=== PATIENT | female | born 1960 | race Caucasian/White ===

== ENCOUNTER 2019-04-23 06:41 | Day surgery (SDC) | payer MEDICARE, MEDICAID, SELFPAY ==
[2019-04-23] VITALS (18 sets, daily range): BP systolic 96–133; BP diastolic 54–83; PULSE 62–91; RESP 15–27; TEMP 35.8–36.9; O2SAT 93–100; BMI 28.1
--- NOTE | 2019-04-23 | DI.RAD.S_ITS ---
PROCEDURE: XR ABDOMEN 1V INDICATIONS: SP PEG tube placement TECHNIQUE: One view of the abdomen acquired. COMPARISON: None. FINDINGS: Surgical changes and devices: PEG tube Bowel: Bowel gas pattern is normal. No contrast is then injected into the PEG tube, so its location cannot be assessed. No free air. Soft tissues: No suspicious abdominal calcifications. Visualized solid organ contours appear normal in size. Bones: No suspicious bony lesions. IMPRESSION: Cannot assess location of PEG tube tip without injection of contrast. Normal bowel gas pattern. No free air noted. Dictated by: Herman Starr M.D. on 04/23/2019 at 10:32 Approved by: Herman Starr M.D. on 04/23/2019 at 10:33
--- NOTE | 2019-04-23 06:50 | PM.PREOP ---
Pre-operative Note Interval Note History & Physical reviewed/Exam performed by Physician: Yes Changes to H&P: No
[2019-04-23] MEDS: LACTATED RINGERS 1,000 ML 42 ML IV (07:28)
[2019-04-23] MEDS: CEFAZOLIN 2 GM/100 ML FROZ.PIGGY IV (07:52)
--- NOTE | 2019-04-23 08:54 | PM.OP.1 ---
Operative Date/Time/Diagnoses Date of procedure: 04/23/19 Time of procedure: 08:54 Pre-op diagnosis: ALS Post-op diagnosis: same Procedure & Clinicians Procedure: Percutaneous endoscopic gastrostomy tube placement Same procedure as scheduled: Yes Indications: Patient is a 59-year-old female with advanced ALS who is no longer able to provide herself with adequate oral nutrition. She presents for elective percutaneous gastrostomy tube Surgeon: Matt Urena Click Yes if Unassisted: No Anesthesia Type: Sedation Operative Notes Estimated Blood Loss (mL): 5 Procedure in detail: Patient was brought to the operating room and positioned in her stretcher. Sedation was provided by anesthesia because of her advanced ALS and concerns for respiratory insufficiency. The endoscope was placed into the mouth and advanced into the esophagus and stomach. The stomach was insufflated and was notable for its small size likely secondary to infrequent use. A point on the anterior abdominal wall was selected over the body of the stomach and an incision was made on the abdominal wall. The abdominal wall was quite thick and the with the small size of the stomach I was unable to pass the finder needle into the stomach here. An alternative location was identified where the needle could be introduced into the stomach under direct visualization. The guide wire was passed via the needle into the stomach and retrieved with the endoscope. The PEG tube was then directed back into the stomach and was 6 cm from the skin. The scope was then reinserted into the stomach and the position of the tube was observed and it was flush with the wall of the stomach and rotated freely. The previous skin incision was closed with 4-0 Monocryl followed by Dermabond. She emerged from anesthesia and was transported to the recovery area in stable condition. A post procedure abdominal XR demonstrates the tube in good position. Complications: none Post-operative Condition: stable Disposition: same day surgery
--- NOTE | 2019-04-23 09:18 | SUR.PHASEI ---
Patient responds to simple yes/no questions. History of ALS, but able to move UE weakly. Denies pain/nausea. Will continue to monitor.
--- NOTE | 2019-04-23 10:03 | SUR.PHASEII ---
Dr. Urena notified X-ray not read at this time. Attempted to reach radiology. Pt stable. Ok to transfer to phase II per Dr. Urena.
[2019-04-23] MEDS: fentaNYL 100 MCG/2 ML INJ 25 MCG IV (10:27)
--- NOTE | 2019-04-23 10:28 | SUR.PHASEI ---
Report received from Anny. Pt moaning when abd touched, abd soft. Peg site and surgical sites cdi.
--- NOTE | 2019-04-23 10:43 | SUR.PHASEI ---
Dr. Urena evaluated patient. Abd soft. Pain improved per pt. O2 sat 96%RA. X-ray report reviewed with MD. VILLALTA for patient to discharge per .
--- NOTE | 2019-04-23 11:01 | SUR.PHASEI ---
Upon arrival, oral care done, lip moisturizer applied.
--- NOTE | 2019-04-23 11:20 | SUR.PHASEI ---
Pt reported 1/10 abd pain, abd soft. Pt transferred to [facility], Report to Anny.
--- NOTE | 2019-04-23 11:32 | SUR.PHASEII ---
Rand from assisted living called and given report. Transport to call me back with a picking crew supervisor time. Abdomen with peg tube c/d/i. Puncture sites with glue c/d/i. VSS, rates pain 08/09.
--- NOTE | 2019-04-23 12:13 | SUR.PHASEII ---
[facility] called again about transportation. Will return call. Pt dressed and ready in wheel chair.
--- NOTE | 2019-04-23 16:34 | SUR.PHASEII ---
late entry: Transporter came for pt, pt left via automated wheelchair and in stable condition.
== END 2019-04-23 12:30 ==
PROVIDERS: PCP Family Medicine; Visit Provider Surgery
PROC: 0DH63UZ Insertion of Feeding Device into Stomach, Percutaneous Approach (ICD-10-PCS; CPT 43246; principal; 2019-04-23 07:45)
DX: G12.21 Amyotrophic lateral sclerosis (principal); R13.10 Dysphagia, unspecified; E46 Unspecified protein-calorie malnutrition; R50.9 Fever, unspecified
CPT/HCPCS: 43246; 36415; 71045; 74018; 80053; 81001; 83605; 83690; 85025; 87880; 99283; J0690; J2704; J3010

== ENCOUNTER 2019-04-23 21:10 | Emergency (ER) | payer MEDICARE, MEDICAID, SELFPAY ==
[2019-04-23 21:15] VITALS: BP 118/74; PULSE 85; RESP 16; TEMP 37.3; O2SAT 96
--- NOTE | 2019-04-23 22:06 | ED.FEVER ---
HPI - Fever General Chief Complaint: Fever Stated Complaint: Fever Time Seen by Provider: 04/23/19 22:06 Source: family and EMS Mode of arrival: EMS Limitations: physical limitation History of Present Illness HPI Narrative: The patient has ALS. She resides at [facility]. She had a PEG tube placed earlier today. After returning back to sleep and 1 rehab, the nurse noted that she has a fever 101?. She arrives now. She has family with her to speak for. She indicates she has no pain. She denies sinus pressure or sore throat. She has no cough or dyspnea. She has no abdominal complaints. She is not prone to urinary tract infections. She has no rashes. The fever was discovered on routine checks. There has been no complaints of illness. Related Data Home Medications Medication Instructions Recorded Confirmed acetaminophen 325 mg tablet 325 mg PO QID PRN 04/03/19 04/17/19 ascorbic acid (vitamin C) 500 mg PO DAILY 04/03/19 04/17/19 cholecalciferol (vitamin D3) 5,000 5,000 unit PO DAILY 04/03/19 04/17/19 unit capsule coenzyme Q10 200 mg capsule 200 mg PO DAILY 04/03/19 04/17/19 docusate sodium 100 mg capsule 100 mg PO DAILY 04/03/19 04/17/19 lidocaine HCl 4 % topical cream 1 applictn TOP QID PRN 04/03/19 04/17/19 omega-3 fatty acids 1,000 mg 1,000 mg PO DAILY 04/03/19 04/17/19 capsule Allergies Allergy/AdvReac Type Severity Reaction Status Date / Time Sulfa (Sulfonamide Allergy Intermediate Verified 04/03/19 11:32 Antibiotics) Review of Systems Review of Systems ROS Unobtainable: All systems reviewed & are unremarkable except as noted in HPI and below Constitutional Constitutional: Denies chills and Denies lethargy Eyes Eyes: Denies change in vision, Denies eye discharge and Denies irritation ENT Ears, Nose, Mouth, and Throat: Denies change in voice, Denies neck pain and Denies sore throat Cardiovascular Cardiovascular: Denies chest pain, Denies irregular heart rhythm, Denies lightheadedness, Denies palpitations, Denies dyspnea and Denies orthopnea Respiratory Respiratory: Denies cough, Denies dyspnea and Denies wheezing Gastrointestinal Gastrointestinal: Denies abdominal pain, Denies change in bowel habits, Denies diarrhea, Denies nausea and Denies vomiting Genitourinary Genitourinary: Denies hematuria, Denies dysuria, Denies flank pain and Denies urinary urgency Musculoskeletal Musculoskeletal: Denies back pain and Denies neck pain Integumentary/Breasts Skin/Breast: Denies pruritus, Denies erythema, Denies rash and Denies wounds Neurologic Comments: Chronically weakness and dysarthria associated with ALS. Endocrine Endocrine: Denies palpitations Allergic/Immunologic Allergic/Immunologic: Denies wheezing [facility] Medical History Acquired lymphedema (Acute) ALS (amyotrophic lateral sclerosis) (Acute) Breast cancer (Acute) Dysphasia (Acute) Malnutrition (Acute) Social History Smoking Status: Never smoker Social History Smoking Status: Never smoker Exam Initial Vital Signs Initial Vital Signs: Vital Signs Temperature 99.2 F 04/23/19 21:15 Pulse Rate 85 04/23/19 21:15 Respiratory Rate 16 04/23/19 21:15 Blood Pressure 118/74 04/23/19 21:15 Pulse Oximetry 96 04/23/19 21:15 Const General: cooperative Orientation: alert, awake and oriented x3 Other: Difficulty with speech due to ALS. She communicates effectively nonetheless. [facility] Head: normocephalic and atraumatic Ears: external ears normal and TM's normal bilaterally Nose: external nose normal and No nasal discharge Face and sinus: sinuses nontender and face symmetric Mouth: oral mucosae normal and moist mucous membranes Throat: posterior oropharynx abnormal Eyes Conjunctivae: conjunctivae normal Neck Neck: no meningeal signs, supple and No lymphadenopathy Chest Chest: normal inspection of the chest Resp Effort & Inspection: normal respiratory effort and able to speak in complete sentences Auscultation: clear to auscultation bilaterally, no rales, no rhonchi and no wheezes Cardio Rate: regular rate Rhythm: regular rhythm Heart Sounds: S1 normal, S2 normal, no click, no gallops, no murmurs and no rubs Pulses: normal peripheral pulses GI Inspection: non-distended Palpation: soft, no hepatosplenomegaly, No guarding, No pulsatile mass and No tender Auscultation: normal bowel sounds Other: Peg tube is noted to be in place. Back/Spine/Pelvis Back: No CVA tenderness and No erythema Skin General: no rashes or lesions noted, No jaundice and No petechiae Neuro General: alert, not confused and other (Generalized weakness) Speech: abnormal speech (See HPI) Extrem Other: Flaccid extremities with minimal motion. Course Course Course Narrative: The patient has demonstrated no ENT complaints, no cough or dyspnea, and no abdominal complaints since arrival. Lab and radiology evaluation is benign. The fever may be drug induced, or viral syndrome. She will be discharged home. Orders Ordered: ED Orders 04/23/19 22:12 XR chest 1V Stat 04/23/19 22:30 Complete Blood Count AUTO DIFF Stat Comprehensive Metabolic Panel Stat Lactate (Lactic Acid) Stat Lipase Stat 04/23/19 23:06 Urinalysis and Microscopic Stat Discontinued Medications Acetaminophen (Tylenol) 650 mg PO NOW ONE Stop: 04/24/19 00:02 Vital Signs Vital signs: Vital Signs - 8 hr 04/23/19 21:15 04/23/19 23:18 Temperature 99.2 F Pulse Rate 85 84 Respiratory Rate 16 15 Blood Pressure 118/74 Blood Pressure [Left Arm] 98/58 L Pulse Oximetry 96 95 MDM - Fever Lab Data Result diagrams: 04/23/19 22:30 04/23/19 22:30 Labs: Lab Results 04/23/19 04/23/19 04/23/19 Range/Units 22:30 22:30 22:30 WBC 10.9 (4.5-11.0) X10^3/uL RBC 3.86 L (4.0-5.2) X10^6/uL Hgb 12.1 (12.0-16.0) g/dL Hct 35.8 L (36-46) % MCV 92.8 (80-100) fL MCH 31.3 (26-34) PG MCHC 33.7 (30-36) % RDW 14.6 (11.6-14.8) % Plt Count 295 (150-400) X10^3/uL Neut % (Auto) 79.2 H (50-75) % Lymph % (Auto) 16.1 L (25-40) % [place] % (Auto) 4.0 (3-14) % Eos % (Auto) 0.3 L (2-4) % Baso % (Auto) 0.4 (0-2) % Neut # (Auto) 8700 H (1642-3805) /uL Lymph # (Auto) 1800 (8871-8465) /uL [place] # (Auto) 400 (0-900) /uL Eos # (Auto) 0 (0-450) /uL Baso # (Auto) 0 (0-100) /uL Sodium 138 (137-145) mmol/L Potassium 3.7 (3.4-5.1) mmol/L Chloride 104 (98-107) mmol/L Carbon Dioxide 26 (22-32) mmol/L BUN 10 (7-17) mg/dL Creatinine 0.40 L (0.52-1.04) mg/dL Estimated GFR > 60.0 (>60) mL/min BUN/Creatinine Ratio 25.0 H (6-22) Glucose 105 (80-110) mg/dL Lactate 0.8 (0.7-2.1) mmol/L Calcium 9.8 (8.4-10.2) mg/dL Total Bilirubin 0.6 (0.2-1.3) mg/dL AST 29 (14-36) IU/L ALT 16 (9-52) IU/L Alkaline Phosphatase 68 (38-126) U/L Total Protein 7.3 (6.3-8.2) g/dL Albumin 3.8 (3.5-5.0) g/dL Globulin 3.5 (1.7-4.1) g/dL Albumin/Globulin Ratio 1.1 (1.0-2.8) Lipase 44 (23-300) U/L Urine Color Urine Appearance Urine pH (4.5-8.0) Ur Specific [place] (1.000-1.035) Urine Protein (Negative) Urine Glucose (UA) (Negative) g/dL Urine Ketones (NEGATIVE) Urine Occult Blood (Negative) Urine Nitrate (Negative) Urine Bilirubin (NEGATIVE) Urine Urobilinogen (0.2) E.U./dL Ur Leukocyte Esterase (NEGATIVE) Urine RBC (0-5/HPF) Urine WBC (0-5/HPF) Ur Squamous Epith Cells (0-5/HPF) Amorphous Sediment Urine Bacteria (None) Ur Culture Indicated? 04/23/19 Range/Units 23:06 WBC (4.5-11.0) X10^3/uL RBC (4.0-5.2) X10^6/uL Hgb (12.0-16.0) g/dL Hct (36-46) % MCV (80-100) fL MCH (26-34) PG MCHC (30-36) % RDW (11.6-14.8) % Plt Count (150-400) X10^3/uL Neut % (Auto) (50-75) % Lymph % (Auto) (25-40) % [place] % (Auto) (3-14) % Eos % (Auto) (2-4) % Baso % (Auto) (0-2) % Neut # (Auto) (5872-0518) /uL Lymph # (Auto) (0451-2430) /uL [place] # (Auto) (0-900) /uL Eos # (Auto) (0-450) /uL Baso # (Auto) (0-100) /uL Sodium (137-145) mmol/L Potassium (3.4-5.1) mmol/L Chloride (98-107) mmol/L Carbon Dioxide (22-32) mmol/L BUN (7-17) mg/dL Creatinine (0.52-1.04) mg/dL Estimated GFR (>60) mL/min BUN/Creatinine Ratio (6-22) Glucose (80-110) mg/dL Lactate (0.7-2.1) mmol/L Calcium (8.4-10.2) mg/dL Total Bilirubin (0.2-1.3) mg/dL AST (14-36) IU/L ALT (9-52) IU/L Alkaline Phosphatase (38-126) U/L Total Protein (6.3-8.2) g/dL Albumin (3.5-5.0) g/dL Globulin (1.7-4.1) g/dL Albumin/Globulin Ratio (1.0-2.8) Lipase (23-300) U/L Urine Color Yellow Urine Appearance Sl cloudy Urine pH 7.5 (4.5-8.0) Ur Specific [place] 1.010 (1.000-1.035) Urine Protein Negative (Negative) Urine Glucose (UA) Negative (Negative) g/dL Urine Ketones Negative (NEGATIVE) Urine Occult Blood Negative (Negative) Urine Nitrate Negative (Negative) Urine Bilirubin Negative (NEGATIVE) Urine Urobilinogen 0.2 (0.2) E.U./dL Ur Leukocyte Esterase Negative (NEGATIVE) Urine RBC None seen (0-5/HPF) Urine WBC None seen (0-5/HPF) Ur Squamous Epith Cells 1-5 /hpf (0-5/HPF) Amorphous Sediment 1+ Urine Bacteria None seen (None) Ur Culture Indicated? Cult not indicated Point of Care Testing Rapid Strep A Negative Imaging Data Chest x-ray: Radiologist's impression: 120 Woo Foley MD Find Patient Imaging - Carolina Mcguire 59 F 1960 ACTIVITY DATE EXAM STATUS AUTHOR 04/23/19 22:12 Signed Call,[address] [address] XRay Report Signed Patient: Carolina McguireMR#: [id number] : 9Acct:[id number] Age/Sex: 59 / FDate of Service: 04/23/19 Loc: ED Accession Number: [id number] Procedure: XR chest 1V Ordering Provider: Woo Foley MD PROCEDURE: XR CHEST 1V INDICATIONS: ALS. Fever. TECHNIQUE: One view of the chest was acquired. Patient is rotated to the right. COMPARISON: None. FINDINGS: Surgical changes and devices: Multiple surgical clips overlying the chest and right axilla. Lungs and pleura: Lungs appear clear. Mild bibasilar hazy opacity most compatible with atelectasis. No pleural effusions or pneumothorax. Mediastinum: Mediastinal contours appear normal. Heart size is normal. Bones and chest wall: No suspicious bony lesions. Overlying soft tissues appear unremarkable. IMPRESSION: No acute cardiopulmonary abnormality. Dictated by: Lewis Garcia M.D. on 04/23/2019 at 22:38 Approved by: Lewis Garcia M.D. on 04/23/2019 at 22:40 Discharge Plan Departure Patient Disposition: Home Clinical Impression: Fever Qualifiers: Fever type: unspecified Qualified Code(s): R50.9 - Fever, unspecified Instructions: DI for Fever (Symptom) -- Adult Activity Restrictions/Additional Instructions: Tylenol 2 tablets every 4 hours as needed for pain or fever. Be sure you receiving plenty of water. Return to the ER for ENT complaints, cough, chest discomfort, or abdominal discomfort. Prescriptions: No Action acetaminophen [Tylenol] 325 mg tablet 325 mg PO QID PRN (Reason: Pain) RF: 0 cholecalciferol (vitamin D3) 5,000 unit capsule 5,000 unit PO DAILY RF: 0 ascorbic acid (vitamin C) crystals 500 mg PO DAILY RF: 0 docusate sodium [Colace] 100 mg capsule 100 mg PO DAILY RF: 0 coenzyme Q10 200 mg capsule 200 mg PO DAILY RF: 0 omega-3 fatty acids 1,000 mg capsule 1,000 mg PO DAILY RF: 0 lidocaine HCl [Aspercreme (lidocaine)] 4 % cream 1 applictn TOP QID PRN (Reason: Pain) RF: 0 Referrals: Janki Andres [Primary Care Provider] -
--- NOTE | 2019-04-23 22:12 | DI.RAD.S_ITS ---
PROCEDURE: XR CHEST 1V INDICATIONS: ALS. Fever. TECHNIQUE: One view of the chest was acquired. Patient is rotated to the right. COMPARISON: None. FINDINGS: Surgical changes and devices: Multiple surgical clips overlying the chest and right axilla. Lungs and pleura: Lungs appear clear. Mild bibasilar hazy opacity most compatible with atelectasis. No pleural effusions or pneumothorax. Mediastinum: Mediastinal contours appear normal. Heart size is normal. Bones and chest wall: No suspicious bony lesions. Overlying soft tissues appear unremarkable. IMPRESSION: No acute cardiopulmonary abnormality. Dictated by: Lewis Garcia M.D. on 04/23/2019 at 22:38 Approved by: Lewis Garcia M.D. on 04/23/2019 at 22:40
[2019-04-23 22:43] LABS: Add Manual Diff / Slide Review NO; Basophils Absolute Auto 0 /uL (0-100); Basophils Percent Auto 0.4 % (0-2); Eosinophils Absolute Auto 0 /uL (0-450); Eosinophils Percent Auto 0.3 % (2-4); Hematocrit 35.8 % (36-46); Hemoglobin 12.1 g/dL (12.0-16.0); Lymphocytes Absolute Auto 1800 /uL (1100-4500); Lymphocytes Percent Auto 16.1 % (25-40); Mean Corpuscular HGB Conc 33.7 % (30-36); Mean Corpuscular Hemoglobin 31.3 PG (26-34); Mean Corpuscular Volume 92.8 fL (80-100); Monocytes Absolute Auto 400 /uL (0-900); Neutrophils Absolute Auto 8700 /uL (1500-7000); Neutrophils Percent Auto 79.2 % (50-75); Platelet Count 295 X10^3/uL (150-400); Red Blood Cell Count 3.86 X10^6/uL (4.0-5.2); Red Cell Distribution Width 14.6 % (11.6-14.8); White Blood Cell Count 10.9 X10^3/uL (4.5-11.0)
[2019-04-23 22:52] LABS: Alanine Aminotransferase 16 IU/L (9-52); Albumin 3.8 g/dL (3.5-5.0); Albumin Globulin Ratio 1.1 (1.0-2.8); Alkaline Phosphatase 68 U/L (38-126); Aspartate Aminotransferase 29 IU/L (14-36); Bilirubin Total 0.6 mg/dL (0.2-1.3); Blood Urea Nitrogen 10 mg/dL (7-17); Calcium 9.8 mg/dL (8.4-10.2); Carbon Dioxide 26 mmol/L (22-32); Chloride 104 mmol/L (98-107); Estimated Glomerular Filt Rate > 60.0 mL/min (>60); Globulin 3.5 g/dL (1.7-4.1); Glucose 105 mg/dL (80-110); HEMOLYSIS 22 (0-50); Lipase 44 U/L (23-300); Potassium 3.7 mmol/L (3.4-5.1); Sodium 138 mmol/L (137-145); Total Protein 7.3 g/dL (6.3-8.2)
[2019-04-23 22:53] LABS: Lactate (Lactic Acid) 0.8 mmol/L (0.7-2.1)
[2019-04-23 23:14] LABS: Bacteria Urine None Seen; RBC Urine None Seen (0-5/HPF); WBC Urine None Seen (0-5/HPF)
[2019-04-23 23:15] LABS: Appearance Urine UA SL CLOUDY; Bilirubin Urine UA NEGATIVE (NEGATIVE); Color Urine UA YELLOW; Glucose Urine UA NEGATIVE (Negative); Ketones Urine UA NEGATIVE (NEGATIVE); Leukocyte Esterase Urine UA NEGATIVE (NEGATIVE); Nitrite Urine UA NEGATIVE (Negative); Occult Blood Urine UA NEGATIVE (Negative); Protein Urine UA NEGATIVE (Negative); Urobilinogen Urine UA 0.2 E.U./dL (0.2)
[2019-04-23 23:16] LABS: pH Urine UA 7.5 (4.5-8.0)
[2019-04-23 23:18] VITALS: BP 98/58; PULSE 84; RESP 15; O2SAT 95
[2019-04-23 23:20] LABS: Amorphous Sediment Urine 1+; Culture Indicated Urine Cult Not Indicated; Squamous Epithelial Cell Urine 1-5 /HPF (0-5/HPF)
[2019-04-24 02:47] VITALS: BP 100/66; PULSE 84; RESP 15; O2SAT 97
== END 2019-04-24 03:26 | disposition home or self-care (01) ==
PROVIDERS: Emergency Provider Emergency Medicine; PCP Family Medicine
DX: R50.9 Fever, unspecified (principal); Z98.890 Other specified postprocedural states
CPT/HCPCS: 36415; 71045; 80053; 81001; 83605; 83690; 85025; 87880

== ENCOUNTER 2019-05-01 14:30 | Outpatient (RCR) | payer MEDICARE, MEDICAID, SELFPAY ==
--- NOTE | 2019-04-16 17:10 | ST.OPIE ---
Visit Care Team Role Provider Type Janki Andres Attending Provider Non-Staff Primary Care Provider Specialty: Medical Address: [address] , [place], [address] Email: Speech-Language Pathology Initial Evaluation LOADING MANAGER Clinical Swallow Evaluation Start: 04/16/19 16:07 Freq: Status: Active Protocol: Document 04/16/19 16:08 JIE (Rec: 04/16/19 17:00 JIE [id number]) Clinical Swallow Evaluation Session Time Visit Start Time 14:30 Visit Stop Time 15:37 Total Visit Minutes 67 Visit Information Visit Number Initial Evaluation Plan of Care Dates 04/16/19 - 07/16/19 Insurance Information Medicare Referral Referring Physician Dr. Andres (PCP). All reports to be sent also to Neurologist Dr Isabella Hough Reason for Referral ALS, Impaired speech articulation Setting Assessment Location Outpatient Care Visit Type Note Type Initial Evaluation Next Note Type Next Note Type Treatment Note Patient Information Identification Type Name,ID Card History This 59-yr-old female resident of [facility] was diagnosed with ALS in Apr 2018. Since then, she has experienced progressive decline of speech intelligibility, swallow function/safety, and physical mobility. She is bound to a sitting power wheelchair and has right upper/lower extremity hemiparesis secondary to ALS. She is able to use left upper/lower extremities unassisted at this time. Communication: The pt primarily communicates verbally and uses a text-to- speech isis (Speak It) on her phone to assist as needed. Although originally right- handed, she is able to sign her name, write limited text, and type on her phone with her left hand. She has recently obtained an eye controlled speech generating device from [employer] and is in the process of being trained in its use by a computer help desk representative. Swallowing: The pt currently consumes a mechanical soft diet texture, thin liquids from straw, and meds in a carrier. She is able to self-feed with left hand. She reports generally feeling safe with this diet and the freedom to request modifications, such as extra gravy/sauce as needed to ease consumption. She is scheduled for PEG tube placement next week (04/23/19) to supplement oral intake and allow for transition to alternative nutrition/hydration when needed. PMHx is significant for breast cancer (2003) and right side mastectomy (2016). Her mother from ALS. 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 As a result, she is familiar with many aspects of ALS progression, including tube feeding as well as aspiration risks and precautions. Subjective Observations The pt arrived on time unattended. She provided case history supplemental to medical records. The pt requested all reports be provided to both Dr. Andres (PCP) and Dr. Hough (Neurologist). A signed Release of Information Form was obtained to provide records to Dr. Hough (see pt chart). Evaluation Liquids Trialed Thin Solids Trialed Puree,Dysphagia Mechanical, Mechanical Soft Administration Type Straw,Self-Feeding Oral Impairment Severely Impaired Oral Strategies Upright at 90 degrees,Lingual Sweep,Controlled Bite/Sip Size, Other Oral Phase Comments Oral Peripheral Exam: Mild- moderate left side weakness evident upon smile. Minimal lingual strength and ROM. Moderate-severe buccal and labial weakness. Pt able to hold minimal amount of air in cheeks and unable to shift it between cheeks. Mildly reduced labial ROM exhibited with smile-pucker sequences. Jaw strength appears WFL with mildly reduced lateral ROM. Soft palate elevates minimally upon phonation when pt cued to increase loudness; otherwise, elevation was not observed. The pt denies nasal trapping or regurgitation. Moderately reduced hyolaryngeal strength and ROM was observed via palpation. The pt has natural dentition, complete with exception of 2 lower molars missing on both left and right sides (4 teeth). Otherwise in good condition. Oral Phase: Initially, the pt exhibited difficulty drawing liquid through straw and holding in oral cavity, resulting in backflow into straw and significant anterior spillage. The pt was able to complete 2 swallows of water with immediate significant cough. The pt commented, The first swallows are hard until I warm up and can get into a rhythm. Then it's ok. This in fact played out and, after having consumed trials of solids, the pt consumed thin liquid via straw in consecutive sips without overt s/sx of aspiration. Oral prep of all solid boluses was performed in mashing motion secondary to lingual weakness and nearly absent a/p propulsion. Pt benefited somewhat from head tilt back to assist a/p transit. Mastication of diced peaches was slow and required occasional finger assistance from pt to position solid pieces from tongue blade to between teeth. She exhibited good oral clearance with exception of one piece of diced fruit, which eventually was cleared with finger sweep to teeth for additional mastication. Pharyngeal Impairment Moderately Impaired Pharyngeal Strategies Sitting Upright (90 deg),Chin Tuck,Small Bites and Sips Pharyngeal Phase Comments As mentioned, the pt exhibited immediate cough with initial swallows of thin liquid; however, she later safely consumed thin liquid via straw in consecutive sips, as well as all solid trials, without overt s/sx of aspiration. Swallows were often audible and effortful, indicating reduced strength/coordination of musculature, increasing the pt's risk of aspiration. Findings Dysphagia Type Severe Oral and Moderate Pharyngeal Dysphagia Rehabilitation Potential Poor Impressions The pt presents with severe oral and moderate pharyngeal dysphagia secondary to ALS. She is at moderate risk of aspiration. Oral consumption is slow and effortful, increasing the pt's risk of malnutrition. She is independently employing strategies such as chin tuck with consumption of liquids, finger sweep to aid mastication and oral clearance, incorporation of lemon juice in water to increase salivary output and trigger swallow, and addition of moisture to foods to ease consumption. She self-feeds, and self-manages anterior oral spillage with napkins. Recommend the pt continue current diet of mechanical soft texture with added moisture, thin liquids via straw and chin tuck, and meds as tolerated in carrier for now. Ongoing assessment to continue via outpatient therapy with modifications to diet as indicated for safety. Transition from outpatient therapy to [facility] Speech Pathology services may be recommended for closer assessment and care following short course of outpatient services. Diet Recommendations Liquids Order Thin Diet Order Mechanical Soft Medication Recommendations Whole in Carrier,Crushed in Carrier,One at a Time Comments Added moisture to solids Additional Dietary Needs Chopped Food Aspiration Precautions Recommended Precautions Upright at 90 Degrees,Frequent Rest Periods,Small Bites/Sips ,Chin Tuck,Lingual Sweep Treatment Plan Placement Recommendations after [employer] Care Facility Discharge Appropriate for Therapy Yes Therapy Recommendations Ongoing assessment, pt/family education, training of compensatory swallow and communication strategies. Dysphagia Goals 1. The pt will employ compensatory swallow strategies in 90% of opportunities with therapeutic oral trials to increase ease and safety of oral consumption. 2. The pt will tolerate least restricted diet to meet her nutrition and hydration needs. Note: Communication goals may be added upon further evaluation of communication skills/needs. Collaboration to take place as needed with sales representative supervisor(s) of [employer] client solutions director. LOADING MANAGER Follow Up 1x/wk for 3 wks after PEG tube placement. Long-term plan to be determined at that time.
--- NOTE | 2019-04-16 17:26 | ST.OPIE ---
Visit Care Team Role Provider Type Janki Andres Attending Provider Non-Staff Primary Care Provider Specialty: Medical Address: [facility] [address] , [place], [address] Email: Speech-Language Pathology Initial Evaluation SURGICAL INSTRUMENT MECHANIC Clinical Swallow Evaluation Start: 04/16/19 16:07 Freq: Status: Active Protocol: Document 04/16/19 16:08 JIE (Rec: 04/16/19 17:00 JIE [id number]) Clinical Swallow Evaluation Session Time Visit Start Time 14:30 Visit Stop Time 15:37 Total Visit Minutes 67 Visit Information Visit Number Initial Evaluation Plan of Care Dates 04/16/19 - 07/16/19 Insurance Information Medicare Referral Referring Physician Dr. Andres (PCP). All reports to be sent also to Neurologist Dr Isabella Hough Reason for Referral ALS, Impaired speech articulation Setting Assessment Location Outpatient Care Visit Type Note Type Initial Evaluation Next Note Type Next Note Type Treatment Note Patient Information Identification Type Name,ID Card History This 59-yr-old female resident of [facility] was diagnosed with ALS in Apr 2018 . Since then, she has experienced progressive decline of speech intelligibility, swallow function/safety, and physical mobility. She is bound to an sitting power wheelchair and has right upper/lower extremity hemiparesis secondary to ALS. She is able to use left upper/lower extremities unassisted at this time. Communication: The pt primarily communicates verbally and uses a text-to- speech isis (Speak It) on her phone to assist as needed. Although originally right- handed, she is able to sign her name, write limited text, and type on her phone with her left hand. She has recently obtained an eye controlled speech generating device from [employer] and is in the process of being trained in its use by a videotape sales representative. Swallowing: The pt currently consumes a mechanical soft diet texture, thin liquids from straw, and meds in a carrier at [facility]. She is able to self-feed with left hand. She reports generally feeling safe with this diet and the freedom to request modifications, such as extra gravy/sauce as needed to ease consumption. She is scheduled for PEG tube placement next week (04/23/19) to supplement oral intake and allow for transition to alternative nutrition/hydration when needed. PMHx is significant for breast cancer (2003) and right side mastectomy (2016). Her mother from ALS. The pt is a retired [employer] of 20 yrs and was involved in her mother's care. As a result, she is familiar with many aspects of ALS progression, including tube feeding as well as aspiration risks and precautions. Subjective Observations The pt arrived on time unattended. She provided case history supplemental to medical records. The pt requested all reports be provided to both Dr. Andres (PCP) and Dr. Hough (Neurologist) . A signed Release of Information Form was obtained to provide records to Dr. Hough (see pt chart). Evaluation Liquids Trialed Thin Solids Trialed Puree,Dysphagia Mechanical, Mechanical Soft Administration Type Straw,Self-Feeding Oral Impairment Severely Impaired Oral Strategies Upright at 90 degrees,Lingual Sweep,Controlled Bite/Sip Size ,Other Oral Phase Comments Oral Peripheral Exam: Mild- moderate left side weakness evident upon smile. Minimal lingual strength and ROM. Moderate-severe buccal and labial weakness. Pt able to hold minimal amount of air in cheeks and unable to shift between cheeks. Mildly reduced labial ROM exhibited with smile-pucker sequences. Jaw strength appears WFL with mildly reduced lateral ROM. Soft palate elevates minimally upon phonation when pt cued to increase loudness; otherwise, elevation was not observed. The pt denies nasal trapping or regurgitation. Moderately reduced hyolaryngeal strength and ROM. The pt has natural dentition, complete with exception of 2 lower molars missing on both left and right sides. Otherwise in good condition. Oral Phase: Initially, the pt exhibited difficulty drawing liquid through straw and holding in oral cavity, resulting in backflow into straw and significant anterior spillage. The pt was able to complete 2 swallows of water with immediate significant cough. The pt commented, The first swallows are hard until I warm up and can get into a rhythm. Then it's ok. This in fact played out and, after having consumed trials of solids, the pt consumed thin liquid via straw in consecutive sips without overt s/sx of aspiration. Oral prep of all solid boluses was performed in mashing motion secondary to lingual weakness and nearly absent a/p propulsion. Pt benefited somewhat from head tilt back to assist a/p transit. Mastication of diced peaches was slow and required occasional finger assistance from pt to position solid pieces from tongue blade to between teeth. She exhibited good oral clearance with exception of one piece of diced fruit, which eventually was cleared with finger sweep to teeth for additional mastication. Pharyngeal Impairment Moderately Impaired Pharyngeal Strategies Sitting Upright (90 deg),Chin Tuck,Small Bites and Sips Pharyngeal Phase Comments As mentioned, the pt exhibited immediate cough with initial swallows of thin liquid; however, she later safely consumed thin liquid via straw in consecutive sips, as well as all solid trials, without overt s/sx of aspiration. Swallows were often audible and effortful, indicating reduced strength/coordination of musculature, increasing the pt's risk of aspiration. Findings Dysphagia Type Severe Oral and Moderate Pharyngeal Dysphagia Rehabilitation Potential Poor Impressions The pt presents with severe oral and moderate pharyngeal dysphagia secondary to ALS. She is at moderate risk of aspiration. Oral consumption is slow and effortful, increasing the pt's risk of malnutrition. She is independently employing strategies such as chin tuck with consumption of liquids, finger sweep to aid mastication and oral clearance , incorporation of lemon juice in water to increase salivary output and trigger swallow, and addition of moisture to foods to ease consumption. She self-feeds, and self-manages anterior oral spillage with napkins. Recommend the pt continue current diet of mechanical soft texture with added moisture, thin liquids via straw and chin tuck, and meds as tolerated in carrier for now. Ongoing assessment to continue via outpatient therapy with modifications to diet as indicated for safety. Transition from outpatient therapy to [facility] Speech Pathology services may be recommended for closer assessment and care following short course of outpatient services. The pt also presents with severe dysarthria, significantly limiting her ability to communicate with others. Speech intelligibility is ~60% with extensive effort from conversation partner. The pt is able to supplement oral speech with written text- to-speech isis on her phone in order to express wants, needs, and other important information. Formal dysarthria assessment will be administered during treatment. Expressive and receptive language skills appear to be WNL. Diet Recommendations Liquids Order Thin Diet Order Mechanical Soft Medication Recommendations Whole in Carrier,Crushed in Carrier,One at a Time Comments Added moisture to solids Additional Dietary Needs Chopped Food Aspiration Precautions Recommended Precautions Upright at 90 Degrees,Frequent Rest Periods,Small Bites/Sips ,Chin Tuck,Lingual Sweep Treatment Plan Placement Recommendations after [facility] Facility Discharge Appropriate for Therapy Yes Therapy Recommendations Ongoing assessment, pt/family education, training of compensatory swallow and communication strategies. Dysphagia Goals 1. The pt will employ compensatory swallow strategies in 90% of opportunities with therapeutic oral trials to increase ease and safety of oral consumption . 2. The pt will tolerate least restricted diet to meet her nutrition and hydration needs. Note: Communication goals may be added upon further evaluation of communication skills/needs. Collaboration to take place as needed with civil rights representative(s) of [employer] device river guide. SURGICAL INSTRUMENT MECHANIC Follow Up 1x/wk for 3 wks after PEG tube placement
--- NOTE | 2019-05-01 16:11 | ST.OPTN ---
Visit Care Team Role Provider Type Janki Andres Attending Provider Non-Staff Primary Care Provider Address: [facility] [address] , [place], [address] CANINE ENFORCEMENT OFFICER Treatment Note CANINE ENFORCEMENT OFFICER Treatment Note Start: 04/16/19 16:07 Freq: Status: Active Protocol: Document 05/01/19 15:42 JIE (Rec: 05/01/19 16:09 JIE [id number]) Speech Pathology Treatment Note Session Time Visit Start Time 14:32 Visit Stop Time 15:20 Total Visit Minutes 48 Visit Information Visit Number 08/[id number] Plan of Care Dates 04/16/19 - 07/16/19 Insurance Information Medicare Setting Treatment Setting Outpatient Care Visit Type Note Type Treatment Note Next Note Type Next Note Type Treatment Note General Information General Information This 59-yr-old female resident of [facility] was diagnosed with ALS in Apr 2018 . Since then, she has experienced progressive decline of speech intelligibility, swallow function/safety, and physical mobility. She is bound to an sitting power wheelchair and has right upper/lower extremity hemiparesis secondary to ALS. She is able to use left upper/lower extremities unassisted at this time. Communication: The pt primarily communicates verbally and uses a text-to- speech isis (Speak It) on her phone to assist as needed. Although originally right- handed, she is able to sign her name, write limited text, and type on her phone with her left hand. She has recently obtained an eye controlled speech generating device from [employer] and is in the process of being trained in its use by a access services representative. Swallowing: The pt currently consumes a mechanical soft diet texture, thin liquids from straw, and meds in a carrier at [facility]. She is able to self-feed with left hand. She reports generally feeling safe with this diet and the freedom to request modifications, such as extra gravy/sauce as needed to ease consumption. She is scheduled for PEG tube placement next week (04/23/19) to supplement oral intake and allow for transition to alternative nutrition/hydration when needed. PMHx is significant for breast cancer (2004) and right side mastectomy (2015). Her mother from ALS. 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 As a result, she is familiar with many aspects of ALS progression, including tube feeding as well as aspiration risks and precautions. Subjective Observations/Patient Presentation Pt arrived on time. Pt underwent surgical placement of PEG tube on 04/23/19. On same day, she was noted to have a fever of 101 degrees and was returned to ED. She was dc'd home same day. The pt reports she has not yet used the tube for feeding and continues with oral intake as primary source of nutrition/ hydration. She reports consumption of 60-90% of meals, 3 meals/day + occasional snacks. She continues at her [facility] with Mechanical Soft diet and thin liquids. This was confirmed by Printing Machine Operator [employer] Scott at [facility] via phone call. Scott reported little direct observation of the pt's consumption but stated she has not received reports of significant swallow safety concerns. The pt also reports having received an eye-gaze ACC device with initial demonstration and training provided by Mr. Dallin Dickens of [employer] [place] [employer] ([phone]). This was also confirmed by Scott, who informed the device is [employer] model [id number], I-15 ETR-02. The pt requires additional training in order to use. Chief Complaint(s) Speech,Swallowing Additional Areas of Concern AAC training Rehab Expectation/Goals: Patient Goals Pt seeks guidance in oral vs tube feeding, safety & communication Patient Knowledge/Awareness of CANINE ENFORCEMENT OFFICER Role Good in Treatment Objective Short Term Goals 1. The pt will employ compensatory swallow strategies in 90% of opportunities with therapeutic oral trials to increase ease and safety of oral consumption. Custodial Goals 1. The pt will tolerate least restricted diet to meet her nutrition and hydration needs. Treatment Activities Consulted with pt RE tube feeding, swallow safety and diet at [facility], status of AAC training and usage, coordination of care including possible transfer of care to her facility's CANINE ENFORCEMENT OFFICER. Coordination of Care: Communicated with pt's [facility] to obtain AAC and diet information. Attempted call to [place] Director of Rehab to discuss transfer of care. Left vm. Assessed pt's swallow safety with trials of thin liquid via tsp (pt was unable to draw liquid through straws) and with pureed and mechanical soft textures. Pt exhibited slowed and effortful bolus manipulation and a/p transit, mild-moderate anterior spillage/drooling with liquid and pureed textures, and mild oral residue with all trials. Manual manipulation of diced peaches was necessary to move food from tongue to teeth for mastication. Pt exhibited and reported greater ease and efficiency with oral prep and swallow phases with mechanical soft vs pureed textures. Delayed mild cough x1 was observed while pt was swallowing oral residue of thin liquid. No other overt s/ sx of aspiration were observed with limited trials. Assessment Patient Response to Treatment Good Rehab Potential Fair Impairments Identified ALS,Dysarthria,Dysphagia, Speech Intelligibility Assessment of Overall Progress Unchanged Assessment of Improvement The pt demonstrated good tolerance of limited oral trials in today's session. Speech intelligibility was ~80 % in quiet environment with max attention and effort from CANINE ENFORCEMENT OFFICER. Pt was able to successfully supplement speech with texting isis on phone. In order to provide highest level of care and consistency to meet the pt's needs in this progressive disease situation and her functional environment, it is recommended that CANINE ENFORCEMENT OFFICER care be transferred to her facility's in-house CANINE ENFORCEMENT OFFICER for frequent monitoring of swallow safety and ongoing training of AAC device. It is also recommended that a key account representative from [employer] and/or [employer] provide additional training to the pt and CANINE ENFORCEMENT OFFICER in order to facilitate its use. The pt is in agreement with these recommendations and agreeable to this CANINE ENFORCEMENT OFFICER working to coordinate this transfer. Reviewed with Patient Goals,Progress Being Made,Home Exercise Program Patient/Caregiver Understanding Excellent Plan Therapeutic Contents AAC,Client Education, Compensatory Swallowing Training,Intelligibility, Swallowing/Feeding Provided Patient/Caregiver Instruction Home Exercise Program,Plan of Care,Questions/Concerns Comment Recommend transfer of care to [facility] CANINE ENFORCEMENT OFFICER services.
--- NOTE | 2019-05-09 10:30 | ST.OPTN ---
Visit Care Team Role Provider Type Janki Andres Attending Provider Non-Staff Primary Care Provider Address: [facility] [address] , [place], [address] SCREW MACHINE TENDER Treatment Note SCREW MACHINE TENDER Treatment Note Start: 04/16/19 16:07 Freq: Status: Active Protocol: Document 05/09/19 10:28 JIE (Rec: 05/09/19 10:30 JIE [id number]) Speech Pathology Treatment Note Visit Type Note Type Administrative Note Subjective Observations/Patient Presentation On 05/08/19, Scott from [facility] called per pt 's request and cancelled the pt's remaining appts. This SCREW MACHINE TENDER discussed with Scott potential of transfer of care from outpatient to services at [facility]. Scott requested on behalf of the pt that the SCREW MACHINE TENDER assist in facilitating this change in service. On 05/09/19 , this SCREW MACHINE TENDER emailed Dr. Andres with request for orders to be sent to [facility] for ST services. Upon receipt of those orders, the pt will be discharged from outpatient services.
== END 2019-05-01 16:30 ==
LOC: SP 14:30
PROVIDERS: PCP Family Medicine; Visit Provider Family Medicine
DX: G12.21 Amyotrophic lateral sclerosis (principal); R26.89 Other abnormalities of gait and mobility; F80.0 Phonological disorder
CPT/HCPCS: 92507; 92526; 92610

== ENCOUNTER → 2019-05-17 09:17 | Outpatient (CLI) | payer MEDICARE, MEDICAID, SELFPAY ==
--- NOTE | 2019-05-24 16:11 | PM.PFT.1 ---
Pulmonary Function Test Referral & Results Date Patient Seen: 05/17/19 Indication: ALS Results: The spirometry demonstrates an FVC of 1.60 L which is 46% of predicted. The FEV1 was measured at 1.38 L which is 52% of predicted. The FEV1/FVC ratio was 86 which is 110% of predicted. No bronchodilator was administered No lung volumes were performed No diffusing capacity was performed Maximum voluntary ventilation was not performed Interpretation: Moderate obstructive lung disease as above based on reduction FEV1
== END ==
PROVIDERS: PCP Family Medicine; Visit Provider Psychiatry & Neurology Neurology
DX: G12.21 Amyotrophic lateral sclerosis (principal); R26.89 Other abnormalities of gait and mobility; F80.0 Phonological disorder; J98.8 Other specified respiratory disorders
CPT/HCPCS: 94010

== ENCOUNTER → 2019-07-04 08:06 | Outpatient (ROUT) | payer MEDICARE, MEDICAID, SELFPAY ==
[2019-07-04 08:56] LABS: Add Manual Diff / Slide Review NO; Basophils Absolute Auto 0 /uL (0-100); Basophils Percent Auto 0.7 % (0-2); Eosinophils Absolute Auto 100 /uL (0-450); Eosinophils Percent Auto 3.1 % (2-4); Hematocrit 37.3 % (36-46); Hemoglobin 12.6 g/dL (12.0-16.0); Lymphocytes Absolute Auto 1600 /uL (1100-4500); Mean Corpuscular HGB Conc 33.7 % (30-36); Mean Corpuscular Hemoglobin 32.3 PG (26-34); Mean Corpuscular Volume 95.8 fL (80-100); Monocytes Absolute Auto 400 /uL (0-900); Monocytes Percent Auto 8.6 % (3-14); Neutrophils Absolute Auto 2500 /uL (1500-7000); Neutrophils Percent Auto 53.6 % (50-75); Platelet Count 278 X10^3/uL (150-400); Red Blood Cell Count 3.89 X10^6/uL (4.0-5.2); Red Cell Distribution Width 13.7 % (11.6-14.8); White Blood Cell Count 4.6 X10^3/uL (4.5-11.0)
[2019-07-04 09:10] LABS: BUN Creatinine Ratio 46.7 (6-22); Blood Urea Nitrogen 14 mg/dL (7-17); Calcium 9.7 mg/dL (8.4-10.2); Carbon Dioxide 30 mmol/L (22-32); Chloride 101 mmol/L (98-107); Estimated Glomerular Filt Rate > 60.0 mL/min (>60); Glucose 88 mg/dL (80-110); HEMOLYSIS < 15 (0-50); Potassium 3.9 mmol/L (3.4-5.1); Sodium 138 mmol/L (137-145)
== END ==
PROVIDERS: PCP Family Medicine; Visit Provider Internal Medicine
DX: G12.21 Amyotrophic lateral sclerosis (principal); E86.0 Dehydration
CPT/HCPCS: 36415; 80048; 85025

== ENCOUNTER → 2019-07-20 19:16 | Outpatient (ROUT) | payer OTHER, MEDICARE, MEDICAID, SELFPAY | PROVIDERS: PCP Family Medicine; Visit Provider Internal Medicine | DX: H53.149 Visual discomfort, unspecified (principal) | CPT/HCPCS: 87070; 87205 ==

== ENCOUNTER 2019-08-11 13:37 | Emergency (ER) | payer OTHER, MEDICARE, MEDICAID, SELFPAY ==
[2019-08-11 13:45] VITALS: BP 153/93; PULSE 128; RESP 20; TEMP 37.4; O2SAT 97
--- NOTE | 2019-08-11 13:56 | ED.SOB ---
HPI - SOB/Dyspnea General Chief Complaint: Fever Stated Complaint: Fever, decreased O2 Time Seen by Provider: 08/11/19 13:38 Source: patient and EMS Mode of arrival: EMS Limitations: other (Nonverbal) History of Present Illness HPI Narrative: Patient sent to the emergency department via EMS after having difficulty breathing at her group home facility at [place]. Patient has a history of ALS and is on hospice care and apparently was having some difficulty breathing. Medics state when they got there, the patient's sats were 92% on room air. Patient is doing better now, per medics. The patient also nods her head asked if she is feeling better. Patient daughter states that the patient's verbal status is her baseline. She states she has been full code on hospice, but that the family and patient are desiring to change the patient's status to DNR with comfort measures only. The patient's hospice doctor, Dr. Erin Lerma, states that the goal is to keep the patient comfortable and to return her to her home facility as soon as possible. Related Data Home Medications Medication Instructions Recorded Confirmed acetaminophen 325 mg tablet 325 mg PO QID PRN 04/03/19 05/06/19 ascorbic acid (vitamin C) 500 mg PO DAILY 04/03/19 05/06/19 cholecalciferol (vitamin D3) 5,000 5,000 unit PO DAILY 04/03/19 05/06/19 unit capsule coenzyme Q10 200 mg capsule 200 mg PO DAILY 04/03/19 05/06/19 docusate sodium 100 mg capsule 100 mg PO DAILY 04/03/19 05/06/19 lidocaine HCl 4 % topical cream 1 applictn TOP QID PRN 04/03/19 05/06/19 omega-3 fatty acids 1,000 mg 1,000 mg PO DAILY 04/03/19 05/06/19 capsule Allergies Allergy/AdvReac Type Severity Reaction Status Date / Time Sulfa (Sulfonamide Allergy Intermediate Verified 05/06/19 13:35 Antibiotics) Review of Systems Review of Systems ROS Unobtainable: Unobtainable due to medical condition Patient History Medical History Acquired lymphedema (Acute) ALS (amyotrophic lateral sclerosis) (Acute) Breast cancer (Acute) Dysphasia (Acute) Malnutrition (Acute) Social History Smoking Status: Never smoker Smoking Status: Never smoker Substance Use Type: does not use Exam Initial Vital Signs Initial Vital Signs: Vital Signs Temperature 99.4 F 08/11/19 13:45 Pulse Rate 128 H 08/11/19 13:45 Respiratory Rate 20 08/11/19 13:45 Blood Pressure 153/93 H 08/11/19 13:45 Pulse Oximetry 97 08/11/19 13:45 Const General: cooperative and well developed Nutritional Appearance: well nourished [facility] Head: normocephalic and atraumatic Ears: external ears normal Nose: external nose normal and No nasal discharge Face and sinus: face symmetric and No dry mucous membranes Mouth: oral mucosae normal and moist mucous membranes Teeth and gingiva: dentition normal Eyes General: appearance normal, both eyes and all related structures Eyelids: eyelids normal Conjunctivae: conjunctivae normal Sclera: sclerae normal Pupils: PERRL EOM: EOM intact bilaterally Neck Neck: normal visual inspection, trachea midline, No lymphadenopathy, No midline deformity and No JVD Lymphatic: No lymphedema Chest Chest: normal inspection of the chest Resp Effort & Inspection: normal respiratory effort, no respiratory distress and no use of accessory muscles Auscultation: clear to auscultation bilaterally, no rales, no rhonchi and no wheezes Cardio Rate: regular rate Rhythm: regular rhythm Heart Sounds: no click, no gallops, no murmurs and no rubs Pulses: normal peripheral pulses GI Inspection: non-distended Palpation: soft, no hepatosplenomegaly, No guarding, No pulsatile mass and tender (Mild, diffuse) Back/Spine/Pelvis Back: No CVA tenderness Cervical Spine: cervical ROM normal and No pain with cervical ROM Thoracic/Lumbar Spine: thoracic and lumbar spine normal to inspection Skin General: no rashes or lesions noted, No jaundice and No petechiae Neuro General: alert and awake Extrem Other: No motion of extremities, consistent with ALS. Psych Appearance: well kempt Mental Status: mental status grossly normal Attitude: cooperative Thought Content: normal and suicidality Judgment: judgment good Course Course Course Narrative: Patient was worked up with influenza swab, which was negative. He the patient's daughter did arrive and spoke with hospice nurse, who also come to the emergency department, and the patient's code status was changed to DNR comfort measures only. The daughter and hospice felt the patient would be better off at a facility where section could be performed, as this is something that the patient is frequently need of. This was arranged before the patient left the emergency department, and patient was able to go to her new facility. We've discussed home management of the symptoms, as well as the usual indications for return. Orders Ordered: Discontinued Medications Lorazepam (Ativan) 0.5 mg PO NOW ONE Stop: 08/11/19 14:11 Last Admin: 08/11/19 14:30 Dose: 0.5 mg Documented by: EFE Vital Signs Vital signs: Vital Signs - 8 hr 08/11/19 13:45 Temperature 99.4 F Pulse Rate 128 H Respiratory Rate 20 Blood Pressure 153/93 H Pulse Oximetry 97 MDM - SOB/Dyspnea Medical Records Attestation: I reviewed the patient's medical records. Lab Data Labs: Lab Results 08/11/19 Range/Units 13:40 Influenza A (RT-PCR) Flu a negative (NEGATIVE) Influenza B (RT-PCR) Flu b negative (NEGATIVE) Discharge Plan Departure Patient Disposition: Home Clinical Impression: ALS (amyotrophic lateral sclerosis), Increased tracheal secretions, Acute dyspnea Discharge Date/Time: 08/11/19 18:05 Instructions: DI for Shortness of Breath Activity Restrictions/Additional Instructions: The chest x-ray and influenza test look good--there is no evidence of an acute or emergent condition this time. Prescriptions: No Action acetaminophen [Tylenol] 325 mg tablet 325 mg PO QID PRN (Reason: Pain) RF: 0 cholecalciferol (vitamin D3) 5,000 unit capsule 5,000 unit PO DAILY RF: 0 ascorbic acid (vitamin C) crystals 500 mg PO DAILY RF: 0 docusate sodium [Colace] 100 mg capsule 100 mg PO DAILY RF: 0 coenzyme Q10 200 mg capsule 200 mg PO DAILY RF: 0 omega-3 fatty acids 1,000 mg capsule 1,000 mg PO DAILY RF: 0 lidocaine HCl [Aspercreme (lidocaine)] 4 % cream 1 applictn TOP QID PRN (Reason: Pain) RF: 0 Referrals: Janki Andres [Primary Care Provider] -
--- NOTE | 2019-08-11 14:10 | DI.RAD.S_ITS ---
PROCEDURE: XR CHEST 1V INDICATIONS: short of breath TECHNIQUE: One view of the chest was acquired. COMPARISON: [facility], CR, XR CHEST 1V, 04/23/2019, 22:18. FINDINGS: Surgical changes and devices: Postsurgical changes are evident within the right axilla and overlying the right chest.. Lungs and pleura: The aeration of the lungs is similar to the prior exam with low lung volumes. Interstitial prominence within the perihilar regions is similar. There may be minimal scar versus atelectasis at left costophrenic angle. Mediastinum: Mediastinal contours appear normal. Heart size is normal. Bones and chest wall: No suspicious bony lesions. Overlying soft tissues appear unremarkable. IMPRESSION: Stable chest. No acute cardiopulmonary process is evident. Dictated by: John Paul Rai M.D. on 08/11/2019 at 13:33 Approved by: John Paul Rai M.D. on 08/11/2019 at 13:34
[2019-08-11] MEDS: LORazepam 0.5 MG TABLET PO (14:30)
[2019-08-11 14:35] LABS: Influenza A - CEPHEID Flu A NEGATIVE (NEGATIVE); Influenza B - CEPHEID Flu B NEGATIVE (NEGATIVE)
--- NOTE | 2019-08-11 15:05 | PC.NURSE ---
Pt arrives with EMS [place] [facility]. DX with ALS Apr 2018. Pt non verbal at baseline with increasing paralysis due to diagnosis of ALS. Currently full code and on hospice care. Spoke with daughter Jami who reports her desire to transition pt to DNR although that conversation has not been discussed with hospice MD just yet. Per [facility] sent to ED bc pt was requesting suctioning and was not opening her mouth for caregivers in order to be adequately suctioned. Pt was suctioned by this RN without difficulty. Pt unable to open her mouth wide, although she was able to open wide enough to suction secretions. Pt 96% RA and managing secretions. Oral care provided with suction swab with jose-ox solution and pt tolerated well. diaphoretic on arrival. cool cloths to head. Patient Uses retina scribing computer to communicate. Denies pain. repositioned for comfort. no labs or IV obtained due to daughter's preference. appears well. NAD. Flu negative and CXR neg for pneumonia
[2019-08-11 16:49] VITALS: BP 110/68; PULSE 84; RESP 19; TEMP 35.9; O2SAT 97
[2019-08-11 18:00] VITALS: BP 119/81; PULSE 91; RESP 22; O2SAT 96
== END 2019-08-11 18:05 | disposition home or self-care (01) ==
PROVIDERS: Emergency Provider Emergency Medicine; PCP Family Medicine
DX: G12.21 Amyotrophic lateral sclerosis (principal); J39.8 Other specified diseases of upper respiratory tract; R06.00 Dyspnea, unspecified
CPT/HCPCS: 71045; 87502; 99283